=== PATIENT | female | born 1995 | race American Indian/Alaskan Native ===

== ENCOUNTER 2017-05-25 01:09 | Emergency (ER) | payer OTHER ==
--- NOTE | 2017-05-25 05:30 | Emergency Department Report ---
HPI - General Chief Complaint: Skin/Abscess/Foreign Body Time Seen by Provider: 05/25/17 04:57 - HPI HPI: 22-year-old female presents to ED complaining of finding uptake on her right thigh area around midnight tonight. Patient states she was at a park earlier which was sitting on the bench loads of the glass. Patient states she was in the shower she noticed the cecum on her right groin area. She states she came to the ER and did not touch it. patient states that she was not present yesterday she denies fever service chills/nausea/vomiting/shortness of breath/chest pain / vomiting/abdominal pain ED Past Medical Hx - Past Medical History Previous Medical History?: No - Surgical History Past Surgical History?: No - Social History Smoking Status: Never Smoker Substance Use Type: None - Medications Home Medications: Home Medications Medication Instructions Recorded Confirmed Last Taken Type Doxycycline [Vibramycin CAP] 100 mg PO Q12HR #10 capsule 05/25/17 Unknown Rx ED Review of Systems ROS: Stated complaint: TICK IN GROIN AREA Other details as noted in HPI Constitutional: denies: chills, fever Eyes: denies: eye pain, eye discharge, vision change ENT: denies: ear pain, throat pain Respiratory: denies: cough, shortness of breath, wheezing Cardiovascular: denies: chest pain, palpitations Endocrine: no symptoms reported Gastrointestinal: denies: abdominal pain, nausea, diarrhea Genitourinary: denies: urgency, dysuria, discharge Musculoskeletal: denies: back pain, joint swelling, arthralgia Skin: denies: rash, lesions Neurological: denies: headache, weakness, paresthesias Psychiatric: denies: anxiety, depression Hematological/Lymphatic: denies: easy bleeding, easy bruising Physical Exam - Physical Exam Vital Signs: Vital Signs 05/25/17 01:46 Temperature 98 F Pulse Rate 73 Respiratory 16 Rate Blood Pressure 126/86 Blood Pressure 126/86 [Left] O2 Sat by Pulse 100 Oximetry Physical Exam: GENERAL: Alert and oriented x3, no apparent distress, Normal Gait, atraumatic. HEAD: Head is normocephalic and a-traumatic. NECK: Supple. Non edematous, No carotid bruits. No lymphadenopathy or thyromegaly. No C-spine tenderness LUNGS: Symetrical with respiration, No wheezing, no rales or crackles, CTAB. HEART: S1, S2 present, regular rate and rhythm without murmur, no rubs, no gallops. Non tender to palpation GENITOURINARY: External genitalia without erythema, exudate or discharge. Vaginal vault is without discharge. Cervix is of normal color without lesion. Brown take on right groin area. She is still alive. This was removed with a pickups. No active bleeding no erythema. SKIN: Warm and dry, No lesions, No ulceration or induration present. ED Course Vital Signs 05/25/17 01:46 Temperature 98 F Pulse Rate 73 Respiratory 16 Rate Blood Pressure 126/86 Blood Pressure 126/86 [Left] O2 Sat by Pulse 100 Oximetry ED Medical Decision Making - Medical Decision Making 22-year-old female presents with a tick bite ED course: Small brown tick was removed from in her right groin area. No acute or active bleeding. Patient tolerated the removal well. Discussed patient take antibiotics as prescribed next couple of days Discussed tick bite was on less than 24 hours so less likely risk of infection. Discussed follow-up with primary care physician in 5 days. Vital signs are normal patient is in no acute distress. Critical care attestation.: If time is entered above; I have spent that time in minutes in the direct care of this critically ill patient, excluding procedure time. ED Disposition Clinical Impression: Tick bite of groin Qualifiers: Encounter type: initial encounter Qualified Code(s): S30.861A - Insect bite ( nonvenomous) of abdominal wall, initial encounter Disposition: DC-01 TO HOME OR SELFCARE Is pt being admited?: No Does the pt Need Aspirin: No Condition: Stable Instructions: Insect Bite or Sting (ED), Tick Bite (ED) Prescriptions: Doxycycline [Vibramycin CAP] 100 mg PO Q12HR #10 capsule Referrals: PRIMARY CARE, [Primary Care Provider] - 3-[address] [facility] [Outside] - 3-5 Days [facility] [Outside] - 3-5 Days Forms: Work/School Release Form(ED) Time of Disposition: 05:31
[2017-05-25 06:05] VITALS: BP 113/71
== END 2017-05-25 06:05 | disposition home or self-care (01) ==
LOC: ED 01:09
DX: S30.861A Insect bite (nonvenomous) of abdominal wall, initial encounter (principal); W57.XXXA Bitten or stung by nonvenomous insect and other nonvenomous arthropods, initial encounter; Y93.9 Activity, unspecified; Y92.9 Unspecified place or not applicable; Y99.9 Unspecified external cause status
CPT/HCPCS: 99282